=== PATIENT | female | born 1985 | race Caucasian/White ===

== ENCOUNTER 2024-11-29 15:55 | Emergency (ER) | payer SELFPAY ==
[~2024-11-29] VITALS: Ht 165.1 cm; Wt 127.0 kg
[2024-11-29 17:10] LABS: BILIRUBIN Negative (Negative); BLOOD Negative (Negative); CLARITY Clear (Clear); COLOR Yellow (Yellow); KETONE Trace (Negative); LEUKO ESTERASE 1+ (Negative); NITRITE Negative (Negative); PH 5.5 (4.5-8.0); SPECIFIC GRAVITY 1.025 (1.001-1.030); UROBILINOGEN 1.0 E.U./dl (0.0-1.0)
[2024-11-29 17:15] LABS: BACTERIA 1+; RBC 0-2 rbc/hpf (0-2)
[2024-11-29 17:16] LABS: MUCOUS 1+
[2024-11-29] MEDS ORDERED: METRONIDAZOLE500 M1 PO (19:09)
[2024-11-29] MEDS ORDERED: MEDROL DOSEPAK4 MG PO (19:09)
[2024-11-29] MEDS ORDERED: MACROBID100 M1 PO (19:09)
== END 2024-11-29 19:14 | disposition home or self-care (01) ==
LOC: ED 15:55
PROVIDERS: Nurse Practitioner Family
DX: J06.9 Acute upper respiratory infection, unspecified (principal); H92.03 Otalgia, bilateral; R53.83 Other fatigue; Z20.822 Contact with and (suspected) exposure to COVID-19